=== PATIENT | male | born 1990 | race Caucasian/White ===

== ENCOUNTER → 2020-05-11 | Outpatient (BNVA) | payer OTHER, SELFPAY | PROVIDERS: PCP Nurse Practitioner Family; Visit Provider Internal Medicine | DX: Z13.89 Encounter for screening for other disorder (principal) | CPT/HCPCS: 99213 ==

== ENCOUNTER 2020-06-06 15:03 | Outpatient (REF) | payer OTHER, SELFPAY | END 2020-06-06 15:04 | disposition home or self-care (01) | LOC: HO.LAB 15:03 | PROVIDERS: PCP Nurse Practitioner Family; Visit Provider Internal Medicine | DX: Z20.828 Contact with and (suspected) exposure to other viral communicable diseases (principal) | CPT/HCPCS: 87635 ==

== ENCOUNTER → 2025-04-26 07:53 | Outpatient (BNVA) | payer OTHER, SELFPAY | PROVIDERS: Visit Provider Emergency Medicine | DX: S86.111A Strain of other muscle(s) and tendon(s) of posterior muscle group at lower leg level, right leg, initial encounter (principal); W01.0XXA Fall on same level from slipping, tripping and stumbling without subsequent striking against object, initial encounter | CPT/HCPCS: 99202 ==

== ENCOUNTER → 2025-05-03 07:46 | Outpatient (BNVA) | payer OTHER, SELFPAY | PROVIDERS: Visit Provider Emergency Medicine | DX: S86.111A Strain of other muscle(s) and tendon(s) of posterior muscle group at lower leg level, right leg, initial encounter (principal); W01.0XXA Fall on same level from slipping, tripping and stumbling without subsequent striking against object, initial encounter | CPT/HCPCS: 93971; 99215 ==

== ENCOUNTER → 2025-05-18 07:51 | Outpatient (BNVA) | payer OTHER, SELFPAY | PROVIDERS: Visit Provider Emergency Medicine | DX: S86.111D Strain of other muscle(s) and tendon(s) of posterior muscle group at lower leg level, right leg, subsequent encounter (principal); W01.0XXD Fall on same level from slipping, tripping and stumbling without subsequent striking against object, subsequent encounter | CPT/HCPCS: 99213 ==

== ENCOUNTER → 2025-06-01 07:49 | Outpatient (BNVA) | payer OTHER, SELFPAY | PROVIDERS: PCP Internal Medicine; Visit Provider Emergency Medicine | DX: S86.111D Strain of other muscle(s) and tendon(s) of posterior muscle group at lower leg level, right leg, subsequent encounter (principal); W01.0XXD Fall on same level from slipping, tripping and stumbling without subsequent striking against object, subsequent encounter | CPT/HCPCS: 99213 ==

== ENCOUNTER 2025-06-29 13:00 | Outpatient (RCR) | payer OTHER, SELFPAY ==
--- NOTE | 2025-06-16 15:24 | MHC.PT.EP ---
[facility] [place] Office [place] Office [place] Office [address] Abel Patterson [address] [phone] F: [phone] F: [phone] F: [phone] F: [phone] Physical Therapy Plan of Care Date of Evaluation: 06/16/25 Date of Surgery: Diagnosis: RIGHT CALF STRAIN (KP) Assessment: DALJIT IS A PLEASANT 34 YO MALE WHO INJURED HIMSELF AT WORK ON 04/25/25. 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 STATES HE STEPPED ONTO UNEVEN GROUND, FELT PAIN IN CALF LIKE I RIPPED SOMETHING , BUT CONTINUED WORKING, PAIN INCREASED DAY WENT ON, NEXT AM WAS HAVING CONT PAIN AND DIFFICULTY WITH WEIGHT BEARING. TO WORK CONNECTION AND REFERRED TO PT. HE STATES THAT PAIN IS SHARP WHEN IT OCCURS BUT IS MINIMAL AT REST, IN THE LAST WEEK PAIN IS LESS FREQUENT AND LESS INTENSE AND HAS JUST BEEN ABLE TO BEGIN BENDING AND PUTTING MORE WEIGHT THROUGH LE. USING MASSAGE GUN, HEAT AND ICE AT HOME FOR RELIEF. UPON EXAM, IMPAIRMENTS INCLUDE DECREASED ROM AT FOOT AND ANKLE, DECREASED STRENGTH OF PF AND EVERTORS, ALTERED STANDING POSTURE AND ALTERED GAIT PATTERNING WITH LOW GEAR TOE OFF AND EARLY HEEL RISE, INCREASED ER AT HIP AND DECREASED TRUNK ROTATION. FUNCTIONAL LIMITATIONS INCLUDE DECREASED TOLERANCE TO PROLONGED STANDING AND WALKING, DECREASED ABILITY TO AMBULATE ON UNEVEN SURFACES, INABILITY TO RUN OR JUMP. HE REPORTS DECREASED PARTICIPATION IN COMMUNITY AND RECREATIONAL ACTIVITIES AND IS CURRENTLY LIGHT-DUTY AT WORK. 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 Manual therapy to restore motion and function. Therapeutic exercise to improve strength and flexibility. Neuromuscular re-education for posture and balance. Therapeutic activities to return to functional activities of daily living. Electronically signed by: DHEERAJ MILLAN PT DPT Please sign and return to therapist. Thank you for your referral.
--- NOTE | 2025-07-25 08:51 | MHC.PT.DC ---
[facility] [place] Office [place] Office [place] Office [address] Abel Patterson [address] [phone] F: [phone] F: [phone] F: [phone] F: [phone] Physical Therapy Discharge Report Diagnosis: RIGHT CALF STRAIN (KP) Date of Surgery: Date of Evaluation: 06/16/25 Date of Discharge: 07/25/25 Treatments to Date: 4 Cancellations to Date: 3 No Shows to Date: 0 Discharge Status: Achieved Goals Independent with HEP Patient Elected to Stop Discharge Summary: Reji cancelled his last 3 scheduled appointments through [employer]. Did not choose to reschedule appointments at that time. At last attended visit chart states Pt with significant improvement in sxs today. Trial of increased load bearing exercises and continuing to emphasize foot mechanics and stability throughout. Continued taping however changed method d/t change in sxs, reporting some benefit. He has been issued a comprehensive home program and it is recommended he cont with this to self manage any residual symptoms. He is DCed from PT at this time. Electronically signed by: Sophia Garcia PT DPT Please sign and return to therapist. Thank you for your referral.
== END 2025-07-25 08:51 | disposition home or self-care (01) ==
LOC: HO.PT 13:00
PROVIDERS: PCP Internal Medicine; Visit Provider Emergency Medicine
DX: S86.111D Strain of other muscle(s) and tendon(s) of posterior muscle group at lower leg level, right leg, subsequent encounter (principal); W18.42XD Slipping, tripping and stumbling without falling due to stepping into hole or opening, subsequent encounter
CPT/HCPCS: 97110; 97140; 97161; 97535

== ENCOUNTER → 2025-06-30 08:10 | Outpatient (BNVA) | payer OTHER, SELFPAY | PROVIDERS: PCP Internal Medicine; Visit Provider Emergency Medicine | DX: S86.111D Strain of other muscle(s) and tendon(s) of posterior muscle group at lower leg level, right leg, subsequent encounter (principal); W01.0XXD Fall on same level from slipping, tripping and stumbling without subsequent striking against object, subsequent encounter; Z02.79 Encounter for issue of other medical certificate | CPT/HCPCS: 99213 ==